=== PATIENT | male | born 1990 | race Caucasian/White ===

== ENCOUNTER 2017-09-29 02:27 | Emergency (ER) | payer BC ==
--- NOTE | 2017-09-29 02:45 | EDM.PDOC ---
ED HPI GENERAL MEDICAL PROBLEM - General Chief Complaint: General Stated Complaint: chest pain Time Seen by Provider: 09/29/17 02:38 Source of Information: Reports: Patient History Limitations: Reports: No Limitations - History of Present Illness INITIAL COMMENTS - FREE TEXT/NARRATIVE: Patient is a 27-year-old who was brought in by the [facility] with chief complaint of chest pain patient states that he was upset and developed chest pain with left arm pain, patient has history of septal defect was followed by cardiology until the age of 9 at present time no chest pain Onset: Sudden Duration: Hour(s): (About an hour and a half ago), Improving Location: Reports: Chest Quality: Reports: Dull, Stabbing Severity: Moderate Improves with: Reports: Rest Worsens with: Reports: Breathing Associated Symptoms: Reports: Chest Pain Left Chest Pain Score (Numeric/FACES): 2 - Related Data Allergies Allergy/AdvReac Type Severity Reaction Status Date / Time bee venom protein (honey bee) Allergy Anaphylactic Verified 09/29/17 02:36 Shock Home Meds: Home Meds . [No Known Home Meds] 09/29/17 [History] ED ROS GENERAL - Review of Systems Review Of Systems: See Below Constitutional: Reports: No Symptoms HEENT: Reports: No Symptoms Respiratory: Reports: No Symptoms Cardiovascular: Reports: Other (History of septal defect) Endocrine: Reports: No Symptoms GI/Abdominal: Reports: No Symptoms : Reports: No Symptoms Musculoskeletal: Reports: No Symptoms Skin: Reports: No Symptoms Neurological: Reports: No Symptoms Psychiatric: Reports: No Symptoms ED EXAM, GENERAL - Physical Exam Exam: See Below Exam Limited By: No Limitations General Appearance: Alert, WD/WN, No Apparent Distress Ears: Normal External Exam, Normal Canal, Hearing Grossly Normal, Normal TMs Nose: Normal Inspection Throat/Mouth: Normal Inspection, Normal Lips, Normal Teeth, Normal Gums, Normal Oropharynx, Normal Voice, No Airway Compromise Head: Atraumatic, Normocephalic Neck: Normal Inspection, Supple, Non-Tender, Full Range of Motion Respiratory/Chest: No Respiratory Distress, Lungs Clear, Normal Breath Sounds, No Accessory Muscle Use, Chest Non-Tender Cardiovascular: Normal Peripheral Pulses, Regular Rate, Rhythm, No Edema, No Gallop, No JVD, No Murmur, No Rub GI/Abdominal: Normal Bowel Sounds, Soft, Non-Tender, No Organomegaly, No Distention, No Abnormal Bruit, No Mass (Male) Exam: Deferred Rectal (Males) Exam: Deferred Back Exam: Normal Inspection, Full Range of Motion, NT Extremities: Normal Inspection, Normal Range of Motion, Non-Tender, Normal Capillary Refill, No Pedal Edema Neurological: Alert, Oriented, CN II-XII Intact, Normal Cognition, Normal Gait, Normal Reflexes, No Motor/Sensory Deficits Psychiatric: Normal Affect, Normal Mood Skin Exam: Warm, Dry, Intact, Normal Color, No Rash Lymphatic: No Adenopathy EKG INTERPRETATION EKG Date: 09/29/17 Rhythm: NSR [place]: Normal P-Wave: Present QRS: Normal ST-T: Normal QT: Normal EKG Interpretation Comments: Normal EKG Course - Vital Signs Last Recorded V/S: Last Vital Signs Temp 99.3 F 09/29/17 02:29 Pulse 87 09/29/17 02:29 Resp 20 09/29/17 02:29 BP 141/83 H 09/29/17 02:29 Pulse Ox 98 09/29/17 02:29 Departure - Departure Time of Disposition: 03:09 Disposition: Refer to Observation Clinical Impression: Hypertension Qualifiers: Hypertension type: unspecified Qualified Code(s): I10 - Essential (primary) hypertension Chest pain Qualifiers: Chest pain type: unspecified Qualified Code(s): R07.9 - Chest pain, unspecified - Discharge Information
[2017-09-29] MEDS ORDERED: Sodium Chloride 0.9% 10 ML Syringe FLUSH PRN (02:48)
[2017-09-29 03:17] LABS: CHLORIDE,CL 102 mmol/L (98-107); SODIUM,NA 139 mmol/L (136-145)
== END 2017-09-29 09:45 | disposition home or self-care (01) ==
LOC: SUPCPDRO 02:27 → LL.ED 02:27
DX: R07.9 Chest pain, unspecified (principal); I10 Essential (primary) hypertension; Z91.030 Bee allergy status
CPT/HCPCS: 36000; 36415; 71020; 80048; 83605; 84484; 85025; 93005; 99285

== ENCOUNTER 2021-04-02 01:22 | Emergency (ER) | payer BC ==
[2021-04-02] MEDS ORDERED: Diazepam 5 MG Tab PO ONE (01:40)
[2021-04-02] MEDS ORDERED: Ketorolac 30 MG/ML SDV IM ONE (01:40)
--- NOTE | 2021-04-02 01:46 | EDM.PDOC ---
ED HPI GENERAL MEDICAL PROBLEM - General Chief Complaint: Back Pain or Injury Stated Complaint: back pain Time Seen by Provider: 04/02/21 01:34 Source of Information: Reports: Patient - History of Present Illness INITIAL COMMENTS - FREE TEXT/NARRATIVE: Agustin is a 30 y/o who comes to the ER with back pain. 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 He does have low back pain almost daily, but tonight he was walking and then moved the wrong way and had intense pain in his mid back region. He tries using an inversion table with no relief, but it hs worked for him in the last. He also took 2 Hydroxyzine and then 2 pain pills that he had gotten from [facility]. He usually gets relief from this, but tonight it does not work. - Related Data Allergies Allergy/AdvReac Type Severity Reaction Status Date / Time bee venom protein (honey bee) Allergy Anaphylactic Verified 04/02/21 01:25 Shock Home Meds: Home Meds Cyclobenzaprine [Flexeril] 10 mg PO TID PRN #30 tab 04/02/21 [Rx] Triamcinolone Acetonide [Triamcinolone Acetonide 0.1% Oint] 80 gm .XX TID PRN #80 tube 04/02/21 [Rx] hydrOXYzine HCL [Hydroxyzine HCl] 25 mg PO ASDIRECTED 04/02/21 [History] Past Medical History Cardiovascular History: Reports: Congenital Septal Defect Neurological History: Reports: Other (See Below) Other Neuro History: Meningitis as a child - Infectious Disease History Infectious Disease History: Reports: Meningitis, Other (See Below) Other Infectious Disease History: Malaria Social & Family History - Caffeine Use Caffeine Use: Reports: Coffee Review of Systems - Review of Systems Review Of Systems: See Below Constitutional: Reports: No Symptoms Eyes: Reports: No Symptoms Ears: Reports: No Symptoms Nose: Reports: No Symptoms Mouth/Throat: Reports: No Symptoms Respiratory: Reports: No Symptoms GI/Abdominal: Reports: No Symptoms Genitourinary: Reports: No Symptoms Musculoskeletal: Reports: Back Pain Skin: Reports: No Symptoms Neurological: Reports: No Symptoms Psychiatric: Reports: No Symptoms ED EXAM, GENERAL - Physical Exam Exam: See Below General Appearance: Alert, WD/WN, No Apparent Distress (Adult male, most comfortable lying on his back.) Ears: Hearing Grossly Normal Throat/Mouth: Normal Voice Head: Atraumatic, Normocephalic Neck: Normal Inspection Respiratory/Chest: No Respiratory Distress Cardiovascular: Regular Rate, Rhythm GI/Abdominal: Soft (Male) Exam: Deferred Rectal (Males) Exam: Deferred Back Exam: Normal Inspection, Muscle Spasm, Other (tenderness noted denis the spine region in the lumbar area.,) Extremities: Normal Capillary Refill Neurological: Alert, Oriented, CN II-XII Intact Psychiatric: Normal Affect Skin Exam: Warm, Dry, Intact, Rash (note atopic patchy rash on lower back and chest region) Lymphatic: No Adenopathy Course - Vital Signs Text/Narrative:: 0134 The patient was seen by the PREVENTION COORDINATOR. He was given Toradol 30mg IM. Will treat the rash with steroids. He did not have a ride home and therefore was sent home with Valium 10mg po x 1 dose to take when he got home. He felt a bit better. He was given written discharge instructions and left the ER in stable condition. Last Recorded V/S: Last Vital Signs Temp 36.2 C 04/02/21 01:29 Pulse 100 04/02/21 01:29 Resp 20 04/02/21 01:29 BP 175/108 H 04/02/21 01:29 Pulse Ox 99 04/02/21 01:29 - Orders/Labs/Meds Meds: Medications Discontinued Medications Generic Name Dose Route Start Last Admin Trade Name Freq PRN Reason Stop Dose Admin Diazepam 10 mg 04/02/21 01:40 Diazepam 5 Mg Tab PO 04/02/21 01:41 ONETIME ONE Ketorolac Tromethamine 30 mg 04/02/21 01:40 Ketorolac 30 Mg/Ml Sdv IM 04/02/21 01:41 ONETIME ONE Departure - Departure Time of Disposition: 01:55 Disposition: Home, Self-Care 01 Condition: Good Clinical Impression: Back pain, lumbosacral Atopic dermatitis Qualifiers: Atopic dermatitis type: unspecified Qualified Code(s): L20.9 - Atopic dermatitis, unspecified - Discharge Information *PRESCRIPTION DRUG MONITORING PROGRAM REVIEWED*: Not Applicable *COPY OF PRESCRIPTION DRUG MONITORING REPORT IN PATIENT DALIA: Not Applicable Prescriptions: Cyclobenzaprine [Flexeril] 10 mg PO TID PRN #30 tab PRN Reason: Muscle Spasm - Painful Triamcinolone Acetonide [Triamcinolone Acetonide 0.1% Oint] 80 gm .XX TID PRN #80 tube PRN Reason: Rash Instructions: Acute Back Pain, Adult, Pain Medicine Instructions, [id number], Eczema Forms: ED Department Discharge Sepsis Event Note (ED) - Evaluation Sepsis Screening Result: No Definite Risk - Focused Exam Vital Signs: Vital Signs Temp Pulse Resp BP Pulse Ox 04/02/21 01:29 36.2 C 100 20 175/108 H 99 - Assessment/Plan Assessment:: 1)Acute Low Back Pain 2)Eczema Plan: -Ibuprofen 200mg 3 tabs orally every 6 hours x 5-7 days then every 6-8 hours as needed (Use over the counter meds) -Acetaminophen 325mg 3 tabls oral every 6 hours as needed for pain (Use over the counter meds) -Cyclobenzaprine 10 mg orally every 8 hours as needed for muscle spasms #30 (Rx) -Use the Triamcinolone 0/1% ointment on the rash TID as needed #80gm(Rx). Use only until the rash clears. -Take the Valium 10mg tablet when you arrive home tonight -Ice or heat applied to the area as needed -Rest, Increase activity as able -Follow up with your Primary Care Provider to arrange further diagnostic testing if the pain persists. Your PCP can also refer you to Physical Therapy for an assessment and this may also help with your pain. -Return to the ER if any other concerns
== END 2021-04-02 02:07 | disposition home or self-care (01) ==
LOC: LL.ED 01:22
DX: M54.5 Low back pain (principal); L20.9 Atopic dermatitis, unspecified; Z91.030 Bee allergy status
CPT/HCPCS: 96372; 99283; A9270; J1885

== ENCOUNTER 2021-04-02 14:19 | Emergency (ER) | payer BC ==
[2021-04-02] MEDS ORDERED: LORazepam 1 MG Tab PO ONE (14:21)
[2021-04-02] MEDS ORDERED: Haloperidol Lactate 5 MG/ML SDV ONE ×2 (14:28)
--- NOTE | 2021-04-02 14:45 | EDM.PDOC ---
ED HPI GENERAL MEDICAL PROBLEM - General Chief Complaint: Behavioral/Psych Stated Complaint: suicide ideation Time Seen by Provider: 04/02/21 14:24 Source of Information: Reports: Patient - History of Present Illness INITIAL COMMENTS - FREE TEXT/NARRATIVE: Agustin is a 30 y/o male who presented to the ER alone. He walked in reporting to the staff "I need help!" "I can't take it anymore." REPORT SPECIALIST asked patient about what happened and he started to cry. He reports waking up feeling suicidal today and reporting that he wants to hurt himself with a gun. He denies having a gun in his backpack and reports "I'm not sure." when asked if he had a gun at his house. Patient reports that his dropped him off and left him here at the ER. He states that he was recently at [facility] and wants to go back there. This patient was seen last night in the ER for low back pain and was treated with Toradol and Valium and discharged to home. He was not agitated and made no threats of suicide last night. - Related Data Allergies Allergy/AdvReac Type Severity Reaction Status Date / Time bee venom protein (honey bee) Allergy Anaphylactic Verified 04/02/21 01:25 Shock Home Meds: Home Meds Cyclobenzaprine [Flexeril] 10 mg PO TID PRN #30 tab 04/02/21 [Rx] Triamcinolone Acetonide [Triamcinolone Acetonide 0.1% Oint] 80 gm .XX TID PRN #80 tube 04/02/21 [Rx] hydrOXYzine HCL [Hydroxyzine HCl] 25 mg PO ASDIRECTED 04/02/21 [History] Past Medical History Cardiovascular History: Reports: Congenital Septal Defect Neurological History: Reports: Other (See Below) Other Neuro History: Meningitis as a child - Infectious Disease History Infectious Disease History: Reports: Meningitis, Other (See Below) Other Infectious Disease History: Malaria Social & Family History - Caffeine Use Caffeine Use: Reports: Coffee Review of Systems - Review of Systems Review Of Systems: Unable To Obtain Reason Not Obtained: Patient agitated and will nto answer questions ED EXAM, GENERAL - Physical Exam Exam: See Below Exam Limited By: Combative/Threatening General Appearance: Alert, WD/WN (Adult male, agitaed and yelling at staff.) Nose: Normal Inspection Throat/Mouth: Normal Voice Head: Atraumatic, Normocephalic Respiratory/Chest: No Respiratory Distress, Lungs Clear GI/Abdominal: Normal Bowel Sounds, Soft (Male) Exam: Deferred Rectal (Males) Exam: Deferred Extremities: Normal Capillary Refill Neurological: Alert, Oriented, CN II-XII Intact Psychiatric: Anxious, Tearful, Other (Agitated and pacing the hallways, not taking direction from staff.) Skin Exam: Warm, Dry, Normal Color Course - Vital Signs Text/Narrative:: 1424 The patient was seen immediately upon entering by the RN and the REPORT SPECIALIST. REPORT SPECIALIST attempted to talk to patient in Triage Room. He then started to cry and yell. He then got up and started walking the hallways and yelling. He resistant to staff attempting to calm him. Case management attempted to call [facility] for transfer. REPORT SPECIALIST attempted to order to Lorazepam 1mg po for the patient, but he kept pacing hallways. 911 was called. Patient continued to get more agitated and then walked out the front door of the hospital and was yelling. chief human resources officer presented to the ER door and description of the patient was provided. Patient obviously left prior to signing the AMA form. - Orders/Labs/Meds Meds: Medications Discontinued Medications Generic Name Dose Route Start Last Admin Trade Name Champ PRN Reason Stop Dose Admin Haloperidol Lactate Confirm 04/02/21 14:28 Haloperidol Lactate 5 Mg/Ml Sdv Administered 04/02/21 14:29 Dose 5 mg .ROUTE .STK-MED ONE Haloperidol Lactate Confirm 04/02/21 14:28 Haloperidol Lactate 5 Mg/Ml Sdv Administered 04/02/21 14:29 Dose 5 mg .ROUTE .STK-MED ONE Lorazepam 1 mg 04/02/21 14:21 Lorazepam 1 Mg Tab PO 04/02/21 14:22 ONETIME ONE Departure - Departure Time of Disposition: 14:45 Disposition: Against Medical Advice 07 Clinical Impression: Suicidal ideation, Aggressive behavior - Discharge Information Referrals: PCP,Unknown [Primary Care Provider] - Forms: ED Department Discharge Additional Instructions: -Police notified of patient leaving AMA
== END 2021-04-02 14:30 | disposition left against medical advice (07) ==
LOC: LL.ED 14:19
DX: F91.8 Other conduct disorders (principal); Z91.030 Bee allergy status
CPT/HCPCS: 99283; 99284

== ENCOUNTER 2021-11-20 18:26 | Emergency (ER) | payer BC ==
[2021-11-20] MEDS ORDERED: Lidocaine 2% 5 ML SDV INJECT ONE (18:29)
[2021-11-20] MEDS ORDERED: Bacitracin Oint 1 GM U/D Packet TOP ONE (18:55)
== END 2021-11-20 19:14 | disposition home or self-care (01) ==
LOC: LL.ED 18:26
DX: S31.119A Laceration without foreign body of abdominal wall, unspecified quadrant without penetration into peritoneal cavity, initial encounter (principal); Z91.030 Bee allergy status; W22.09XA Striking against other stationary object, initial encounter; Y99.0 Civilian activity done for income or pay
CPT/HCPCS: 99282

== ENCOUNTER 2021-12-10 13:16 | Emergency (ER) | payer BC ==
[2021-12-10 14:24] LABS: ANION GAP 11.3 meq/L (7-15); CHLORIDE,CL 103 mmol/L (98-107); SODIUM,NA 141 mmol/L (136-145)
[2021-12-10 14:32] LABS: BARBITURATE SCREEN,URINE NEGATIVE (NEGATIVE); BENZODIAZEPINES SCREEN,URINE NEGATIVE (NEGATIVE); EDDP,URINE SCREEN NEGATIVE (NEGATIVE); TCA SCREEN,URINE NEGATIVE (NEGATIVE); THC SCREEN,URINE 50 NG/ML POSITIVE (NEGATIVE)
[2021-12-10 14:37] LABS: BUPRENORPHINE SCREEN,URINE NEGATIVE (NEGATIVE)
== END 2021-12-10 15:42 | disposition home or self-care (01) ==
LOC: LL.ED 13:16
DX: F32.A Depression, unspecified (principal); Z91.030 Bee allergy status; Z20.822 Contact with and (suspected) exposure to COVID-19
CPT/HCPCS: 36415; 80053; 80305-QW; 80307; 81001; 84443; 85025; 99284; U0002